=== PATIENT | male | born 1960 | race Caucasian/White ===

== ENCOUNTER → 2016-12-18 | Outpatient (REF) ==
[~2016-12-18] MED LIST: DESYREL 100MG100 MG PO; KLONOPIN 1MG1 MG PO; LIPITOR20 MG PO; LIPITOR40 MG PO; LORTAB 5/500 501 TAB; PERCOCET 325 MG1 TA2 PO; PRILOSEC 20MG20 MG PO; TRAZODONE HCL100 MG PO; VICODIN PO; XANAX 0.5MG0.5 MG PO
[2016-12-18 18:39] LABS: TOTAL IRON BINDING CAPACITY 377 ug/dL (261-462)
[2016-12-18 19:06] LABS: FERRITIN 87 ng/mL (18-464)
== END ==
LOC: ZLAB.WCH 18:17
PROVIDERS: Nurse Practitioner Family
DX: Z01.89 Encounter for other specified special examinations (principal)

== ENCOUNTER → 2016-12-18 | Outpatient (CLI) | payer SELFPAY | LOC: COL.LAB 12:05 | DX: Z02.89 Encounter for other administrative examinations (principal) ==

== ENCOUNTER → 2017-03-27 | Outpatient (REF) ==
[2017-03-27 19:32] LABS: PSA-TOTAL 0.29 ng/mL (0-4); THYROID STIMULATING HORMONE 0.64 uIU/mL (0.465-4.680)
== END ==
LOC: ZLAB.WCH 18:29
PROVIDERS: Internal Medicine
DX: Z01.89 Encounter for other specified special examinations (principal)
CPT/HCPCS: G0103

== ENCOUNTER → 2017-10-03 | Outpatient (REF) ==
[2017-10-03 18:52] LABS: THYROID STIMULATING HORMONE 0.163 uIU/mL (0.465-4.680)
== END ==
LOC: ZLAB.WCH 17:55
PROVIDERS: Internal Medicine
DX: Z01.89 Encounter for other specified special examinations (principal)

== ENCOUNTER 2018-02-20 09:13 | Emergency (ER) | payer MEDICARE ==
[~2018-02-20] VITALS: Ht 172.7 cm; Wt 82.3 kg
[2018-02-20 09:15] VITALS: TEMP 97.7
[2018-02-20] MEDS ORDERED: SMZ/TMPDS PO (09:22)
[2018-02-20] MEDS ORDERED: LIPITOR 40MG TA40 MG PO (09:31)
[2018-02-20] MEDS ORDERED: PRINIVIL10 MG PO (09:31)
[2018-02-20] MEDS ORDERED: SINGULAIR 110 MG/TAB PO (09:32)
[2018-02-20] MEDS ORDERED: NORCO 325 MG-7.1 TAB PO (09:32)
[2018-02-20] MEDS ORDERED: KLONOPIN 1MG1 MG PO (09:32)
[2018-02-20 12:47] VITALS: BP 125/81; PULSE 78
== END 2018-02-20 12:49 | disposition home or self-care (01) ==
LOC: COL.ER 09:13
DX: G89.18 Other acute postprocedural pain (principal)

== ENCOUNTER 2018-10-22 08:09 | Day surgery (SDC) | payer MEDICARE, MEDICAID ==
[~2018-10-22] VITALS: Ht 167.6 cm; Wt 79.7 kg
[~2018-10-22 08:09] MED LIST changes: +LIPITOR 40MG TA40 MG PO; +NORCO 325 MG-7.1 TAB PO; +PRINIVIL10 MG PO; +SINGULAIR 110 MG/TAB PO; +SMZ/TMPDS PO
[2018-10-22 08:55] VITALS: BP 121/93; PULSE 89; TEMP 98.2
[2018-10-22] MEDS ORDERED: FLONASE NASAL S16 GM NS (09:14)
--- NOTE | 2018-10-22 09:16 | NUR ---
TO RM AT 0817- CALL LIGHT IN REACH AT BEDSIDE
[2018-10-22] MEDS ORDERED: CLEOCIN HCL300 MG PO (11:29)
[2018-10-22 11:55] VITALS: BP 122/86; PULSE 71; TEMP 97.8
--- NOTE | 2018-10-22 11:55 | NUR ---
AN 58YO MALE TO RM 7 PER CART FROM PACU. DROWSY,BUT ANSWERS ALL QUESTIONS COHERENTLY. RECEIVED WATER AND TAKING SIPS. AT BEDSIDE. DENIES NAUSEA OR VOMITING DENIES PAIN. PATIENT COUGHING UP SPUTUM.
[2018-10-22 12:00] VITALS: BP 119/82; PULSE 70
[2018-10-22 12:15] VITALS: BP 134/67; PULSE 73
--- NOTE | 2018-10-22 12:15 | NUR ---
MORE AWAKE AND TALKING TO . ATE 100% AND TOLERATED WELL.
[2018-10-22 12:30] VITALS: BP 113/77; PULSE 73
--- NOTE | 2018-10-22 12:30 | NUR ---
RECEIVED 2ND CUP WATER AND 2ND SPRITE
--- NOTE | 2018-10-22 12:30 | NUR ---
PRESCRIPTION CALLED TO [facility] FOR CLEOCIN 300MG TID FOR 7 DAYS.
[2018-10-22 12:45] VITALS: BP 138/83; PULSE 68
--- NOTE | 2018-10-22 12:45 | NUR ---
RECEIVED DISCHARGE INSTRUCTIONS AND VERBALIZED UNDERSTANDING. DISCONTINUED IV AND INT- BY BUTT WELDER.
--- NOTE | 2018-10-22 13:00 | NUR ---
DISCHARGED PER WC BY NURSING STAFF TO PRIVATE CAR IN CARE OF [facility].
== END 2018-10-22 13:00 | disposition home or self-care (01) ==
LOC: SDCO 08:09
DX: J32.9 Chronic sinusitis, unspecified (principal); I10 Essential (primary) hypertension; E78.00 Pure hypercholesterolemia, unspecified; F32.9 Major depressive disorder, single episode, unspecified; F41.9 Anxiety disorder, unspecified; E11.9 Type 2 diabetes mellitus without complications; J30.2 Other seasonal allergic rhinitis; F17.210 Nicotine dependence, cigarettes, uncomplicated; H65.492 Other chronic nonsuppurative otitis media, left ear; K21.9 Gastro-esophageal reflux disease without esophagitis; M06.9 Rheumatoid arthritis, unspecified; G89.29 Other chronic pain; D50.9 Iron deficiency anemia, unspecified; Z88.0 Allergy status to penicillin; Z86.73 Personal history of transient ischemic attack (TIA), and cerebral infarction without residual deficits; Z79.51 Long term (current) use of inhaled steroids; Z82.49 Family history of ischemic heart disease and other diseases of the circulatory system; Z82.5 Family history of asthma and other chronic lower respiratory diseases; Z83.3 Family history of diabetes mellitus; Z91.030 Bee allergy status; Z91.048 Other nonmedicinal substance allergy status
CPT/HCPCS: J1100; J1170; J2250; J2405; J2704; J2765; J3010; J7030

== ENCOUNTER 2018-12-04 15:55 | Emergency (ER) | payer MEDICARE, MEDICAID ==
[~2018-12-04 15:55] MED LIST changes: +CLEOCIN HCL300 MG PO; +FLONASE NASAL S16 GM NS
[2018-12-04 16:02] VITALS: TEMP 97.5
[2018-12-04] MEDS ORDERED: NORCO 325 MG-51 TAB PO (16:42)
[2018-12-04 16:43] LABS: INR 0.9 (0.8-3.0); PROTHROMBIN TIME 10.6 SECONDS (9.7-12.8)
[2018-12-04 16:45] LABS: PARTIAL THROMBOPLASTIN TIME 33.9 SECONDS (26.0-37.0)
[2018-12-04 16:52] LABS: ALANINE AMINOTRANSFERASE 26 U/L (21-72); ALBUMIN 4.2 gm/dL (3.5-5.0); ALKALINE PHOSPHATASE 105 U/L (50-136); ANION GAP 10 mmol/L (7-16); AST,SGOT 72 U/L (15-37); BILIRUBIN,TOTAL 0.5 mg/dL (0.0-1.0); BLOOD UREA NITROGEN 10 mg/dL (9-20); CALCIUM 9.7 mg/dL (8.4-10.2); CARBON DIOXIDE 26 mmol/L (22-30); CHLORIDE 105 mmol/L (98-107); CREATININE, serum 1.12 (0.66-1.25); GLUCOSE 80 mg/dL (74-106); POTASSIUM 4.2 mmol/L (3.4-5.0); SODIUM 140 mmol/L (137-145); TOTAL PROTEIN 7.7 gm/dL (6.4-8.2)
[2018-12-04 17:03] LABS: BASO % 0.4 % (0.0-2.0); EOS % 0.2 % (0-4.0); GRAN # 3.2 (1.4-6.5); GRAN % 67.4 % (42.2-75.2); HEMATOCRIT 41.5 % (42.0-52.0); HEMOGLOBIN 14.2 g/dl (13.5-18.0); LYMPH # 1.1 (1.2-3.4); MEAN CELL VOLUME 96 fl (80.0-100.0); MEAN CORPUSCULAR HEMOGLOBIN 33 pg (27.0-31.0); MEAN CORPUSCULAR HGB CONC 34 g/dl (33.0-37.0); MONO # 0.3 (0.1-0.6); MONO % 7.1 % (1.7-9.3); PLATELET COUNT 189 K/mm3 (130-400); RED BLOOD COUNT 4.32 M/mm3 (4.20-5.60); REDCELL DISTRIBUTION WIDTH-CV 11.4 % (11.5-14.5)
[2018-12-04] MEDS ORDERED: FLOXIN 10 ML10 ML OT (17:03)
[2018-12-04 17:23] LABS: TROPONIN-I < 0.012 ng/mL (0.000-0.035)
[2018-12-04] MEDS ORDERED: CARAFATE 1GM1 G PO (19:27)
[2018-12-04 19:30] VITALS: BP 137/91; PULSE 70
== END 2018-12-04 20:27 | disposition home or self-care (01) ==
LOC: COL.ER 15:55
PROVIDERS: Family Medicine
DX: K21.9 Gastro-esophageal reflux disease without esophagitis (principal); R07.89 Other chest pain; I10 Essential (primary) hypertension; E78.5 Hyperlipidemia, unspecified; F17.210 Nicotine dependence, cigarettes, uncomplicated; Z79.51 Long term (current) use of inhaled steroids

== ENCOUNTER 2018-12-08 10:00 | Outpatient (RCR) | payer OTHER ==
[~2018-12-08 10:00] MED LIST changes: +CARAFATE 1GM1 G PO; +FLOXIN 10 ML10 ML OT; +NORCO 325 MG-51 TAB PO
== END 2018-12-29 ==
LOC: WSPT
DX: M54.5 Low back pain (principal)

== ENCOUNTER 2019-02-08 14:55 | Emergency (ER) | payer MEDICARE, MEDICAID ==
[~2019-02-08] VITALS: Ht 170.2 cm; Wt 84.5 kg
[2019-02-08 15:00] VITALS: TEMP 98.2
[2019-02-08 16:05] LABS: BASO % 0.6 % (0.0-2.0); EOS % 0.6 % (0-4.0); GRAN # 3.2 (1.4-6.5); GRAN % 64.3 % (42.2-75.2); HEMATOCRIT 45.2 % (42.0-52.0); HEMOGLOBIN 15.7 g/dl (13.5-18.0); LYMPH # 1.3 (1.2-3.4); LYMPH % 25.9 % (20.0-51.0); MEAN CELL VOLUME 99 fl (80.0-100.0); MEAN CORPUSCULAR HEMOGLOBIN 34 pg (27.0-31.0); MEAN CORPUSCULAR HGB CONC 35 g/dl (33.0-37.0); MEAN PLATELET VOLUME 9.9 fl (7.4-10.4); MONO # 0.4 (0.1-0.6); MONO % 8.4 % (1.7-9.3); PLATELET COUNT 189 K/mm3 (130-400); RED BLOOD COUNT 4.57 M/mm3 (4.20-5.60); REDCELL DISTRIBUTION WIDTH-CV 12.5 % (11.5-14.5)
[2019-02-08 16:19] LABS: ALANINE AMINOTRANSFERASE 164 U/L (21-72); ALKALINE PHOSPHATASE 178 U/L (50-136); ANION GAP 8 mmol/L (7-16); AST,SGOT 320 U/L (15-37); BILIRUBIN,TOTAL 0.9 mg/dL (0.0-1.0); BLOOD UREA NITROGEN 11 mg/dL (9-20); CALCIUM 9.1 mg/dL (8.4-10.2); CARBON DIOXIDE 25 mmol/L (22-30); CHLORIDE 104 mmol/L (98-107); CREATININE, serum 1.04 (0.66-1.25); GLUCOSE 76 mg/dL (74-106); LIPASE 66 U/L (23-300); POTASSIUM 4.3 mmol/L (3.4-5.0); SODIUM 138 mmol/L (137-145); TOTAL PROTEIN 7.6 gm/dL (6.4-8.2)
[2019-02-08 16:23] LABS: ALCOHOL(ethanol),MEDICAL < 10 mg/dL; C-REACTIVE PROTEIN < 0.5 mg/dL (0.0-0.9)
[2019-02-08 17:04] LABS: COLLECTION METHOD CLEAN CATCH
[2019-02-08 17:16] LABS: MUCOUS Present /lpf; PH 6 (5-8); SQUAMOUS EPITHELIAL None Seen /hpf; URINE APPEARANCE Clear; URINE BACTERIA None Seen /hpf; URINE BILIRUBIN Negative (NEGATIVE); URINE BLOOD Negative (NEGATIVE); URINE COLOR Yellow; URINE GLUCOSE Negative (NEGATIVE); URINE KETONE 1+ (NEGATIVE); URINE LEUKOCYTE ESTERASE Negative (NEGATIVE); URINE NITRATE Negative (NEGATIVE); URINE PROTEIN(semi-quant) Negative (NEGATIVE); URINE RBC 0-2 /hpf; URINE UROBILINOGEN Negative (NEGATIVE)
[2019-02-08] MEDS ORDERED: CARAFATE 1GM1 G PO (17:17)
[2019-02-08 17:47] VITALS: BP 147/113; PULSE 85
== END 2019-02-08 18:05 | disposition home or self-care (01) ==
LOC: COL.ER 14:55
PROVIDERS: Physician Assistant
DX: K29.70 Gastritis, unspecified, without bleeding (principal); I10 Essential (primary) hypertension; E78.5 Hyperlipidemia, unspecified; Z90.49 Acquired absence of other specified parts of digestive tract
CPT/HCPCS: J1885; J2270; J2405; J7030; Q9967

== ENCOUNTER → 2019-02-12 | Outpatient (CLI) | payer MEDICARE | LOC: COL.RAD 06:51 | DX: K70.10 Alcoholic hepatitis without ascites (principal); R19.7 Diarrhea, unspecified ==

== ENCOUNTER 2019-08-05 07:56 | Emergency (ER) | payer MEDICARE ==
[~2019-08-05] VITALS: Ht 170.2 cm; Wt 81.8 kg
[2019-08-05] MEDS ORDERED: VENTOLIN0.09 MG IH (08:24)
[2019-08-05] MEDS ORDERED: PREDNISONE20 MG PO (08:24)
[2019-08-05] MEDS ORDERED: [UNRECOGNIZED DRUG - OTHER] PO (08:25)
[2019-08-05 08:37] LABS: BASO # 0.1 (0.0-0.2); BASO % 0.7 % (0.0-2.0); EOS % 0.1 % (0-4.0); GRAN # 5.5 (1.4-6.5); GRAN % 77.6 % (42.2-75.2); HEMATOCRIT 49.5 % (42.0-52.0); HEMOGLOBIN 16.6 g/dl (13.5-18.0); LYMPH # 0.9 (1.2-3.4); LYMPH % 12.7 % (20.0-51.0); MEAN CELL VOLUME 93 fl (80.0-100.0); MEAN CORPUSCULAR HEMOGLOBIN 31 pg (27.0-31.0); MEAN CORPUSCULAR HGB CONC 34 g/dl (33.0-37.0); MEAN PLATELET VOLUME 10.2 fl (7.4-10.4); MONO # 0.6 (0.1-0.6); MONO % 8.5 % (1.7-9.3); PLATELET COUNT 213 K/mm3 (130-400); RED BLOOD COUNT 5.35 M/mm3 (4.20-5.60); REDCELL DISTRIBUTION WIDTH-CV 12.7 % (11.5-14.5)
[2019-08-05 08:51] LABS: ALBUMIN 4.6 gm/dL (3.5-5.0); BILIRUBIN,TOTAL 0.4 mg/dL (0.0-1.0); CALCIUM 9.5 mg/dL (8.4-10.2); CREATININE, serum 0.97 (0.66-1.25); POTASSIUM 4.3 mmol/L (3.4-5.0); TOTAL PROTEIN 8.4 gm/dL (6.4-8.2)
[2019-08-05 14:08] LABS: TROPONIN-I < 0.012 ng/mL (0.000-0.035)
[2019-08-05 15:00] VITALS: BP 116/76; PULSE 88; TEMP 97.3
== END 2019-08-05 15:00 | disposition home or self-care (01) ==
LOC: COL.ER 07:56
PROVIDERS: Emergency Medicine
DX: J20.9 Acute bronchitis, unspecified (principal); F17.210 Nicotine dependence, cigarettes, uncomplicated; Z86.73 Personal history of transient ischemic attack (TIA), and cerebral infarction without residual deficits
CPT/HCPCS: J2930; J3475; J7030

== ENCOUNTER → 2020-09-05 | Outpatient (REF) ==
[~2020-09-05] MED LIST changes: +PREDNISONE20 MG PO; +VENTOLIN0.09 MG IH; +[UNRECOGNIZED DRUG - OTHER] PO
== END ==
LOC: ZLAB.WCH 09:55
DX: Z01.89 Encounter for other specified special examinations (principal)

== ENCOUNTER 2024-01-25 16:12 | Emergency (ER) | payer MEDICARE ==
[~2024-01-25] VITALS: Ht 170.2 cm; Wt 84.1 kg
[2024-01-25 16:20] VITALS: TEMP 97.6
[2024-01-25 17:00] LABS: BASO # 0.1 K/mm3 (0.0-0.2); BASO % 0.6 % (0.0-2.0); EOS % 0.4 % (0.0-4.0); GRAN # 8.5 K/mm3 (1.4-6.5); GRAN % 80.1 % (42.2-75.2); HEMATOCRIT 47.5 % (42.0-52.0); HEMOGLOBIN 16.3 g/dl (13.5-18.0); LYMPH # 1.2 K/mm3 (1.2-3.4); LYMPH % 11.4 % (20.0-51.0); MEAN CELL VOLUME 97 fl (80.0-100.0); MEAN CORPUSCULAR HEMOGLOBIN 33 pg (27-31); MEAN CORPUSCULAR HGB CONC 34 g/dl (33.0-37.0); MEAN PLATELET VOLUME 10.1 fl (7.4-10.4); MONO # 0.7 K/mm3 (0.1-0.6); MONO % 6.6 % (1.7-9.3); PLATELET COUNT 185 K/mm3 (130-400); RED BLOOD COUNT 4.89 M/mm3 (4.20-5.60); REDCELL DISTRIBUTION WIDTH-CV 11.9 % (11.5-14.5)
[2024-01-25] MEDS ORDERED: NS 100 ML IV SCH (17:10)
[2024-01-25] MEDS ORDERED: Iohexol 300 - 100 ML VIAL IV ONE (17:10)
[2024-01-25 17:18] LABS: ALBUMIN 4.4 g/dL (3.4-4.8); BILIRUBIN,TOTAL 0.5 mg/dL (0.2-1.2); CALCIUM 9.1 mg/dL (8.4-10.2); CREATININE, serum 0.79 mg/dL (0.72-1.25); POTASSIUM 4.1 mEq/L (3.5-4.5); TOTAL PROTEIN 8.1 g/dl (6.2-8.1)
[2024-01-25] MEDS ORDERED: HYDROmorphone 0.5 MG/0.5 ML SYRINGE IV ONE (17:30)
[2024-01-25] MEDS ORDERED: NORCO 325 MG-51 TAB PO (18:04)
[2024-01-25 18:25] VITALS: BP 151/119; PULSE 90
== END 2024-01-25 18:25 | disposition home or self-care (01) ==
LOC: COL.ER 16:12
PROVIDERS: Physician Assistant
DX: S42.002A Fracture of unspecified part of left clavicle, initial encounter for closed fracture (principal); R73.9 Hyperglycemia, unspecified; F17.290 Nicotine dependence, other tobacco product, uncomplicated; W01.198A Fall on same level from slipping, tripping and stumbling with subsequent striking against other object, initial encounter
CPT/HCPCS: J1170; Q9967

== ENCOUNTER 2024-01-27 16:04 | Emergency (ER) | payer MEDICARE ==
[~2024-01-27] VITALS: Ht 170.2 cm; Wt 84.1 kg
[2024-01-27 16:12] VITALS: TEMP 98.3
[2024-01-27] MEDS ORDERED: Morphine 10 MG/ML VIAL IM ONE (16:45)
[2024-01-27 18:15] VITALS: BP 143/94; PULSE 101
== END 2024-01-27 18:15 | disposition home or self-care (01) ==
LOC: COL.ER 16:04
DX: S42.012A Anterior displaced fracture of sternal end of left clavicle, initial encounter for closed fracture (principal); W19.XXXA Unspecified fall, initial encounter
CPT/HCPCS: J2270